=== PATIENT | female | born 1940 | race Asian ===

== ENCOUNTER 2017-11-19 00:25 | Emergency (ER) | payer MEDICARE, OTHER ==
[~2017-11-19] VITALS: Ht 152.4 cm; Wt 72.7 kg
[2017-11-19] MEDS ORDERED: HYDR25TA PO (00:34)
[2017-11-19] MEDS ORDERED: ATEN100T PO (00:34)
[2017-11-19] MEDS ORDERED: ASPI-556 PO (00:34)
[2017-11-19] MEDS ORDERED: ONDANSETRON HCL 4 MG/2 ML VIAL IM ONE (06:15)
[2017-11-19 06:28] VITALS: BP 126/76
== END 2017-11-19 07:08 | disposition home or self-care (01) ==
LOC: EMS 00:27
DX: S09.90XA Unspecified injury of head, initial encounter (principal); E78.00 Pure hypercholesterolemia, unspecified; I10 Essential (primary) hypertension; Z90.49 Acquired absence of other specified parts of digestive tract; Z79.82 Long term (current) use of aspirin; Z79.899 Other long term (current) drug therapy; W05.0XXA Fall from non-moving wheelchair, initial encounter; Y93.89 Activity, other specified; Y92.89 Other specified places as the place of occurrence of the external cause; Y99.8 Other external cause status
CPT/HCPCS: 70450; 99284

== ENCOUNTER 2023-11-27 09:43 | Emergency (ER) | payer MEDICARE, OTHER ==
[~2023-11-27] VITALS: Ht 153 cm; Wt 67.2 kg
[~2023-11-27 09:43] MED LIST: ASPI-556 PO; ATEN100T92 PO; HYDR25TA2 PO; MECL-134 PO
[2023-11-27 09:47] VITALS: TEMP 97.8
[2023-11-27] MEDS ORDERED: ASPI-1451 PO (10:59)
[2023-11-27] MEDS ORDERED: GABA-1181 PO (10:59)
[2023-11-27] MEDS ORDERED: METO-416 PO (10:59)
[2023-11-27] MEDS ORDERED: MEMA5TAB16 PO (10:59)
[2023-11-27] MEDS ORDERED: FAMO40TA7 PO (10:59)
[2023-11-27] MEDS: MECLIZINE HCL 25 MG TABLET PO ONE (11:37)
[2023-11-27] MEDS: ACETAMINOPHEN 500 MG TABLET PO ONE (11:38)
[2023-11-27] MEDS: ONDANSETRON 4 MG TABLET PO ONE (11:38)
[2023-11-27 11:43] LABS: BASOPHILS % (AUTO) 1.3 % (0.0-2.0); EOSINOPHILS % (AUTO) 2.7 % (1.0-6.0); HEMATOCRIT 38.6 % (36-46); HEMOGLOBIN 12.8 g/dL (12.0-16.0); LYMPHOCYTES # (AUTO) 2.1 K/uL (1.0-4.8); LYMPHOCYTES % (AUTO) 37.4 % (22.0-44.0); MEAN CORPUSCULAR HEMOGLOBIN 30.7 pg (26.0-34.0); MEAN CORPUSCULAR HGB CONC 33.2 G/dL (31.0-37.0); MEAN CORPUSCULAR VOLUME 93 fL (80-100); MONOCYTES # (AUTO) 0.5 K/uL (0.1-1.0); MONOCYTES % (AUTO) 9.1 % (2.0-9.0); NEUTROPHILS # (AUTO) 2.8 K/uL (1.8-7.7); NEUTROPHILS % (AUTO) 49.5 % (40.0-70.0); PLATELET COUNT (AUTO) 256 K/uL (150-450); RED BLOOD CELL COUNT(AUTO) 4.18 MIL/uL (4.00-5.20); RED CELL DISTRIBUTION WIDTH 13.3 % (11.5-14.5); WHITE BLOOD COUNT (AUTO) 5.6 K/uL (4.5-11.0)
[2023-11-27 11:54] LABS: ANION GAP 9 mmol/L (8-16); CALCIUM, TOTAL 9.1 mg/dL (8.8-10.5); CARBON DIOXIDE 25 mmol/L (22-29); CHLORIDE 106 mmol/L (98-107); GLOMERULAR FILTR. RATE CALC > 60 mL/min (>60); GLUCOSE,RANDOM 99 mg/dL (70-110); POTASSIUM 4.3 mmol/L (3.5-5.1); SODIUM SERUM 140 mmol/L (136-145); UREA NITROGEN, BLOOD 21 mg/dL (7-18)
[2023-11-27] MEDS ORDERED: MECL-134 PO (11:58)
[2023-11-27] MEDS ORDERED: ACET-2247 PO (11:58)
[2023-11-27 11:59] VITALS: BP 150/60; PULSE 80; RESP 16; O2SAT 99
== END 2023-11-27 12:20 | disposition home or self-care (01) ==
LOC: EMS 09:43
DX: S20.212A Contusion of left front wall of thorax, initial encounter (principal); F03.A0 Unspecified dementia, mild, without behavioral disturbance, psychotic disturbance, mood disturbance, and anxiety; E78.00 Pure hypercholesterolemia, unspecified; I10 Essential (primary) hypertension; Z90.710 Acquired absence of both cervix and uterus; Z98.890 Other specified postprocedural states; W19.XXXA Unspecified fall, initial encounter; Y93.89 Activity, other specified; Y92.89 Other specified places as the place of occurrence of the external cause; Y99.8 Other external cause status
CPT/HCPCS: 99285; 70450; 80048; 85025; 36415; 71101; 93005; Q0162